=== PATIENT | male | born 1940 | race Caucasian/White ===

== ENCOUNTER 2017-10-25 21:31 | Inpatient (IN) | payer OTHER ==
[~2017-10-25] VITALS: Ht 177.8 cm; Wt 127.3 kg
[~2017-10-25 21:31] MED LIST: AMLODIPINE BESYL5 M1 PO; ANT12.5 PO; BACTRIM DS1 TAB PO; LAC PO; LOT20; LOT20 PO; METFORMIN HCL1000 MG PO; NEU300 PO; ZYL100 PO
[2017-10-25 22:51] LABS: BASOPHIL % 0.3 % (0-2); PLATELET COUNT 290 x10^3mcL (130-400); RED CELL DISTRIBUTION WIDTH 14.2 % (11.5-14.5)
[2017-10-25 22:56] LABS: CALCIUM 8.7 mg/dL (8.5-10.1); CARBON DIOXIDE 24.3 mmol/L (21-32); CHLORIDE SERUM 102 mmol/L (98-107); CREATININE SERUM 1.4 mg/dL (0.7-1.3); GLUCOSE SERUM 236 mg/dL (74-106); POTASSIUM SERUM 4.5 mmol/L (3.5-5.1); SODIUM SERUM 140 mmol/L (136-145)
[2017-10-25 23:03] LABS: ALBUMIN 3.5 g/dL (3.4-5.0); ALKALINE PHOSPHATASE 88 U/L (46-116); ALT/SGPT 26 U/L (16-63); AST/SGOT 13 U/L (15-37); BILIRUBIN TOTAL 0.68 mg/dL (0.20-1.00); CHOLESTEROL 160 mg/dL (<200); HDL CHOLESTEROL 59 mg/dL (40-60); TOTAL PROTEIN, SERUM 8.3 g/dL (6.4-8.2)
[2017-10-26] VITALS (8 sets, daily range): BP systolic 117–179; BP diastolic 45–86
[2017-10-26 02:22] LABS: UA SPECIFIC GRAVITY 1.025 (1.005-1.035); microscopic required? YES; urine erythrocyte NEGATIVE (NEGATIVE)
[2017-10-26 05:04] LABS: BASOPHIL % 0.2 % (0-2); PLATELET COUNT 259 x10^3mcL (130-400); RED CELL DISTRIBUTION WIDTH 14.5 % (11.5-14.5)
[2017-10-26 05:12] LABS: CARBON DIOXIDE 27.4 mmol/L (21-32); CHLORIDE SERUM 106 mmol/L (98-107); CREATININE SERUM 1.3 mg/dL (0.7-1.3); GLUCOSE SERUM 204 mg/dL (74-106); POTASSIUM SERUM 4.6 mmol/L (3.5-5.1); SODIUM SERUM 141 mmol/L (136-145)
[2017-10-26 06:54] LABS: T3 TOTAL 0.82 ng/mL
[2017-10-26 06:55] LABS: CHOLESTEROL/HDL RATIO 2.8; MAGNESIUM 1.8 mg/dL (1.8-2.4); PHOSPHOROUS 2.4 mg/dL (2.5-4.9)
[2017-10-26 07:13] LABS: FREE T4 1.06 ng/dL (0.76-1.46); FREE THYROXINE INDEX 2.6 ug/dL (1.4-4.5); T4(THYROXINE) 7.2 ug/dL (4.7-13.3)
[2017-10-26 14:19] LABS: AMPHETAMINE QUAL UR NONE DETECTED (NEG <=1000)
[2017-10-27 05:37] VITALS: BP 121/56
[2017-10-27 06:20] LABS: BASOPHIL % 1.1 % (0-2); PLATELET COUNT 255 x10^3mcL (130-400)
[2017-10-27 06:29] LABS: RED CELL DISTRIBUTION WIDTH 14.7 % (11.5-14.5)
[2017-10-27 06:51] LABS: CALCIUM 8.4 mg/dL (8.5-10.1); CARBON DIOXIDE 28.8 mmol/L (21-32); CHLORIDE SERUM 104 mmol/L (98-107); CREATININE SERUM 1.1 mg/dL (0.7-1.3); GLUCOSE SERUM 118 mg/dL (74-106); PHOSPHOROUS 3.8 mg/dL (2.5-4.9); POTASSIUM SERUM 4.2 mmol/L (3.5-5.1); SODIUM SERUM 141 mmol/L (136-145)
[2017-10-27 09:50] VITALS: BP 151/54
[2017-10-27 15:32] VITALS: BP 150/56
[2017-10-27 18:17] VITALS: BP 107/71
[2017-10-27 20:55] VITALS: BP 128/66
[2017-10-28 05:46] VITALS: BP 130/58
[2017-10-28 07:29] LABS: BASOPHIL % 0.3 % (0-2); PLATELET COUNT 259 x10^3mcL (130-400); RED CELL DISTRIBUTION WIDTH 14.5 % (11.5-14.5)
[2017-10-28 10:34] VITALS: BP 129/63
[2017-10-28 14:06] VITALS: BP 125/63
[2017-10-28] MEDS ORDERED: MEDDP PO ×2 (16:27→16:34)
[2017-10-28] MEDS ORDERED: LEVAQUIN750 MG PO ×2 (16:27→16:34)
[2017-10-28] MEDS ORDERED: LAC PO ×2 (16:28→16:34)
[2017-10-28] MEDS ORDERED: CLINDAMYCIN HC300 MG PO ×2 (16:28→16:34)
[2017-10-28 16:58] VITALS: BP 125/63
== END 2017-10-28 17:52 | disposition home health service (06) | DRG 177 ==
LOC: ED 21:31 → DU 10-26 02:02
PROVIDERS: Emergency Medicine; Family Medicine
PROC: 0JBB3ZX Excision of Perineum Subcutaneous Tissue and Fascia, Percutaneous Approach, Diagnostic (ICD-10-PCS; principal; 2017-10-27)
DX: J69.0 Pneumonitis due to inhalation of food and vomit (principal); N17.0 Acute kidney failure with tubular necrosis; Z68.41 Body mass index [BMI] 40.0-44.9, adult; E11.65 Type 2 diabetes mellitus with hyperglycemia; E11.51 Type 2 diabetes mellitus with diabetic peripheral angiopathy without gangrene; A63.0 Anogenital (venereal) warts; R80.9 Proteinuria, unspecified; D64.9 Anemia, unspecified; E86.0 Dehydration; I10 Essential (primary) hypertension; E66.01 Morbid (severe) obesity due to excess calories
CPT/HCPCS: 36600; 82962; 83880; 84439; 87804; 94150; 97110-GP; 97116-GP; 97530-GP; J0456; J0696; J1815; J1956; J2001; J2920; J3490; J7030; J7050; J7620; Q0092

== ENCOUNTER 2018-09-23 16:10 | Inpatient (IN) | payer OTHER ==
[~2018-09-23] VITALS: Ht 177.8 cm; Wt 84.9 kg
[~2018-09-23 16:10] MED LIST changes: -AMLODIPINE BESYL5 M1 PO; +CLINDAMYCIN HC300 MG PO; +LEVAQUIN750 MG PO; +MEDDP PO; +NOR5 PO
[2018-09-23 16:18] VITALS: Ht 177.8 cm; Wt 84.9 kg
[2018-09-23 17:05] LABS: PLATELET COUNT 256 x10^3mcL (130-400); RED CELL DISTRIBUTION WIDTH 14.2 % (11.5-14.5)
[2018-09-23 17:09] LABS: CALCIUM 8.8 mg/dL (8.5-10.1); CHLORIDE SERUM 100 mmol/L (98-107); CREATININE SERUM 1.5 mg/dL (0.7-1.3); GLUCOSE SERUM 257 mg/dL (74-106); POTASSIUM SERUM 4.1 mmol/L (3.5-5.1); SODIUM SERUM 137 mmol/L (136-145)
[2018-09-23 17:16] LABS: ALBUMIN 3.5 g/dL (3.4-5.0); ALKALINE PHOSPHATASE 103 U/L (46-116); ALT/SGPT 35 U/L (16-63); AST/SGOT 22 U/L (15-37); BILIRUBIN TOTAL 1.09 mg/dL (0.20-1.00); CHOLESTEROL 168 mg/dL (<200)
[2018-09-23 17:17] LABS: HDL CHOLESTEROL 63 mg/dL (40-60)
[2018-09-23 17:25] LABS: BAND NEUTROPHIL 17 % (0-10); BASOPHIL 0 % (0-2); MONOCYTE 5 % (0-7); SEGMENTED NEUTROPHILS 72 % (37-75); rbc morphology (normal/abnorm) NORMAL (NORMAL)
[2018-09-23 17:26] LABS: PLATELET MORPHOLOGY PLATELETS NORMAL
[2018-09-23 20:37] LABS: UA SPECIFIC GRAVITY 1.025 (1.005-1.035); microscopic required? YES; urine erythrocyte TRACE (NEGATIVE)
[2018-09-23 21:25] VITALS: BP 154/84
[2018-09-24 05:11] VITALS: BP 136/71
[2018-09-24 07:35] LABS: BASOPHIL % 0.5 % (0-2); PLATELET COUNT 249 x10^3mcL (130-400); RED CELL DISTRIBUTION WIDTH 14.4 % (11.5-14.5)
[2018-09-24 07:58] LABS: CALCIUM 8.1 mg/dL (8.5-10.1); CHLORIDE SERUM 106 mmol/L (98-107); CREATININE SERUM 1.3 mg/dL (0.7-1.3); GLUCOSE SERUM 228 mg/dL (74-106); PHOSPHOROUS 3.3 mg/dL (2.5-4.9); SODIUM SERUM 142 mmol/L (136-145)
[2018-09-24 09:14] VITALS: BP 183/77
[2018-09-24 10:44] VITALS: BP 138/82
[2018-09-24 13:49] VITALS: BP 148/66
[2018-09-24 14:43] VITALS: BP 148/66
== END 2018-09-24 15:37 | disposition home or self-care (01) | DRG 871 ==
LOC: ED 16:10 → DU 19:44
PROVIDERS: Emergency Medicine; Internal Medicine Nephrology
PROC: 0HCMXZZ Extirpation of Matter from Right Foot Skin, External Approach (ICD-10-PCS; principal; 2018-09-23)
DX: A41.9 Sepsis, unspecified organism (principal); J18.9 Pneumonia, unspecified organism; L03.031 Cellulitis of right toe; S91.141A Puncture wound with foreign body of right great toe without damage to nail, initial encounter; E11.9 Type 2 diabetes mellitus without complications; M19.90 Unspecified osteoarthritis, unspecified site; I10 Essential (primary) hypertension; E66.01 Morbid (severe) obesity due to excess calories; Z90.49 Acquired absence of other specified parts of digestive tract; W45.8XXA Other foreign body or object entering through skin, initial encounter; Y92.009 Unspecified place in unspecified non-institutional (private) residence as the place of occurrence of the external cause
CPT/HCPCS: 36600; 82962; 87804; J0456; J0696; J1644; J7030; J7050; Q0092

== ENCOUNTER 2020-02-23 02:09 | Emergency (ER) | payer OTHER ==
[~2020-02-23] VITALS: Ht 185.4 cm; Wt 127.0 kg
[2020-02-23 03:20] VITALS: BP 00/00; Ht 185.4 cm; Wt 127.0 kg
== END 2020-02-23 08:02 | disposition expired ==
LOC: ED 02:09
DX: I46.9 Cardiac arrest, cause unspecified (principal); E11.9 Type 2 diabetes mellitus without complications; M19.90 Unspecified osteoarthritis, unspecified site; I10 Essential (primary) hypertension